=== PATIENT | male | born 1995 | race Caucasian/White ===

== ENCOUNTER → 2017-07-23 | Outpatient (CLI) | payer OTHER ==
--- NOTE | 2017-07-23 17:16 | US ---
EXAMINATION TYPE: US thyroid st tissue head/neck DATE OF EXAM: 07/23/2017 COMPARISON: NONE CLINICAL HISTORY: E04.1 Thyroid Nodule. Patient states MRI showed enlarged thyroid GLAND SIZE: Right Lobe: 5.1 x 2.0 x 1.5 cm Overall Parenchyma: heterogenous Left Lobe: 4.9 x 1.8 x 1.6 cm Overall Parenchyma: heterogeneous Isthmus Thickness: 0.6 cm NODULES RIGHT: # of nodules measured on right: 0 LEFT: # of nodules measured on left: 0 ISTHMUS: # of nodules measured in the isthmus: 1 1. 0.5 X 0.7 x 0.4 cm hypoechoic nodule at the right lateral aspect of isthmus with irregular josesito ns. This nodule is wider than tall and shows no intranodular vascularity. Prior size: No prior Bilateral neck scanned, no evidence of lymphadenopathy. Bilateral enlarged thyroid lobes IMPRESSION: There is a 5 mm cyst in the isthmus. No dominant thyroid mass.
== END | disposition home or self-care (01) ==
LOC: RADUSWWP 16:30
PROVIDERS: ATTEND Pediatrics
DX: E04.1 Nontoxic single thyroid nodule (principal)
CPT/HCPCS: 76536

== ENCOUNTER → 2018-03-30 | Outpatient (CLI) | payer OTHER ==
--- NOTE | 2018-03-30 18:55 | US ---
EXAMINATION TYPE: US thyroid st tissue head/neck DATE OF EXAM: 03/30/2018 COMPARISON: 07/23/2017 CLINICAL HISTORY: E04.1 thyroid nodule. Hx of thyroid nodule, no medications GLAND SIZE: Right Lobe: 4.4 x 1.7 x 1.6 cm Overall Parenchyma: heterogenous Left Lobe: 4.5 x 1.7 x 1.6 cm Overall Parenchyma: heterogeneous Isthmus Thickness: 0.6 cm NODULES RIGHT: # of nodules measured on right: 1 1. 0.7 X 0.6 x 0.5 cm hypoechoic solid nodule at the mid medial pole with well-defined margins. Th is nodule is taller than wide and shows no intranodular vascularity. Prior size: No previous LEFT: # of nodules measured on left: 0 ISTHMUS: # of nodules measured in the isthmus: 1 1. 0.5 X 0.5 x 0.3 cm cystic nodule at the right lateral side with well-defined margins. This nodu le is wider than tall and shows no intranodular vascularity. Prior size: 0.5 x 0.7 x 0.4 cm Bilateral neck scanned, no evidence of lymphadenopathy. IMPRESSION: Small nodules in both thyroid lobes. No dominant thyroid mass. There is overall no adverse change com pared to old exam.
== END | disposition home or self-care (01) ==
LOC: RADUSWWP 16:47
PROVIDERS: ATTEND Internal Medicine
DX: E04.2 Nontoxic multinodular goiter (principal)
CPT/HCPCS: 76536